=== PATIENT | male | born 1945 | race Hispanic/Latino ===

== ENCOUNTER 2018-01-23 09:53 | Day surgery (SDC) | payer BC, MEDICARE ==
--- NOTE | 2018-01-23 12:02 | Anesthesia Consultation ---
Anesthesia Consult and Med Hx Date of service: 01/23/18 - Airway Anesthetic Teeth Evaluation: Partials ROM Head & Neck: Adequate Mental/Hyoid Distance: Adequate Mallampati Class: Class II Intubation Access Assessment: Probably Good - Pulmonary Exam CTA: Yes - Cardiac Exam Cardiac Exam: RRR - Pre-Operative Health Status ASA Pre-Surgery Classification: ASA3 Proposed Anesthetic Plan: General - Pre-Anesthesia Comment Pre-Anesthesia Comments: LMA ok - Pulmonary Hx Smoking: Yes (1 PPD X 50 YRS) COPD: Yes (NO MEDS) Hx Sleep Apnea: No (JAJA PRE SCREEN HIGH RISK. 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
[2018-01-23] MEDS ORDERED: TYLENOL PO PRN (12:03)
[2018-01-23] MEDS ORDERED: DILAUDID IV PRN (12:03)
[2018-01-23] MEDS ORDERED: ZOFRAN IV PRN (12:03)
--- NOTE | 2018-01-23 12:03 | Anesthesia Day of Surgery ---
Anesthesia Day of Surgery - Day of Surgery Patient Examined: Yes Patient H&P Reviewed: Yes Patient is NPO: Yes Beta Blockers: No (pt. takes amlodipine) Cardiac Clearance: No
[2018-01-23] MEDS ORDERED: PROVENTIL IH ONE (12:11)
[2018-01-23] MEDS ORDERED: ATROVENT IH ONE (12:20)
[2018-01-23] MEDS ORDERED: LEVAQUIN 500MG/100ML 500 MG/100 ML BAG IV NR (13:00)
[2018-01-23] MEDS ORDERED: NACL 0.9% 1000 ML 1,000 ML IV SCH ×2 (13:00→16:00)
[2018-01-23] MEDS ORDERED: DUONEB *Not for PRN Use IH ONE (13:00)
[2018-01-23] MEDS ORDERED: XYLOCAINE MPF 2% ONE (13:17)
[2018-01-23] MEDS ORDERED: SUBLIMAZE ONE ×2 (13:18→15:14)
[2018-01-23] MEDS ORDERED: DIPRIVAN 10 MG/ML IV ONE (13:18)
[2018-01-23] MEDS ORDERED: ZOFRAN ONE (14:17)
[2018-01-23] MEDS ORDERED: NEO SYNEPHRINE/NS Syringe(OR USE) IV ONE (14:17)
[2018-01-23] MEDS ORDERED: WATER FOR IRRIG STERILE IR ONE (14:27)
--- NOTE | 2018-01-23 16:07 | Short Stay Summary ---
Short Stay Documentation Date of service: 01/23/18 - History H&P: obtained from office - Allergies and Medications Current Medications: Allergies Penicillins Adverse Reaction (Verified 01/10/18 16:40) Unknown WAS TOLD A CHILD THAT HE WAS ALLERGIC- UNKNOWN REACTION Home Medications Medication Instructions Recorded Confirmed Last Taken Type Aspirin [Aspir-Low] 81 mg PO DAILY 01/10/18 01/23/18 01/20/18 09:00 History amLODIPine [Norvasc] 5 mg PO DAILY 01/10/18 01/23/18 01/22/18 20:00 History Flomax 0.4 mg PO DAILY 01/23/18 01/23/18 01/22/18 20:00 History Active Medications Acetaminophen (Tylenol) 650 mg PO ONCE PRN PRN Reason: Pain, Mild (1-3) Hydromorphone HCl (Dilaudid) 0.25 mg IV Q10MIN PRN PRN Reason: Pain, Moderate (4-6) Stop: 01/23/18 20:00 Sodium Chloride (Nacl 0.9% 1000 Ml) 1,000 mls @ 100 mls/hr IV DIRECT MERVAT Last Admin: 01/23/18 12:20 Dose: 100 mls/hr Ondansetron HCl (Zofran) 4 mg IV ONCE PRN PRN Reason: Nausea And Vomiting - Brief post op/procedure progress note Date of procedure: 01/23/18 Pre-op diagnosis: BLadder stones Post-op diagnosis: same Procedure: Cystolithalapaxy Anesthesia: GETA Findings: mod lt lat / med w/ high BN, 3 large stone bladder, Left reanl lg stone, rt renal stones Surgeon: YOBANY WORLEY Estimated blood loss: minimal Pathology: list Specimen disposition: to lab Condition: stable - Hospital course Hospital course: or pacu home - Disposition Condition at discharge: Good Disposition: DC-01 TO HOME OR SELFCARE Short Stay Discharge Plan Activity: advance as tolerated Diet: advance as tolerated Follow up with: YOBANY WORLEY MD [Staff Physician] - 01/28/18
[2018-01-23 16:44] VITALS: BP 107/62
--- NOTE | 2018-01-23 23:27 | Post Anesthesia Evaluation ---
- Post Anesthesia Evaluation Patient Participated: Yes Airway Patent: Yes Stable Respiratory Function: Yes Nausea/Vomiting: No Temp > 96.8F: No Pain Manageable: Yes Adequeate Hydration: Yes Anesthesia Complications: No
--- NOTE | 2018-01-24 08:52 | Fluoroscopy Report ---
FLUOROSCOPY RETROGRADE UROGRAPHY: HISTORY: Bladder stones, hematuria. FINDINGS: Fluoroscopy was provided by radiology during retrograde urography by the urologist. 10 fluoroscopic images were captured. Bilateral nephrolithiasis is suspected. A staghorn calculus is suggested in the left renal pelvis. No ureteral stones are appreciated. Multiple bladder stones are noted. Please correlate with the procedural report. IMPRESSION: Bladder stones. Bilateral nephrolithiasis.
== END 2018-01-23 09:54 | disposition home or self-care (01) ==
LOC: OR 09:53
PROVIDERS: ATTEND Urology
DX: N21.0 Calculus in bladder (principal); R31.0 Gross hematuria; N20.0 Calculus of kidney; N40.1 Benign prostatic hyperplasia with lower urinary tract symptoms; Z88.0 Allergy status to penicillin; Z79.899 Other long term (current) drug therapy
CPT/HCPCS: 36415; 52318; 74420; 82365; A4217; C1726; C1758; C1769; J1956; J2370; J2405; J2704; J3010; J7030; Q9967